=== PATIENT | male | born 1960 | race African-American/Black ===

== ENCOUNTER 2017-06-01 13:05 | Emergency (ER) | payer MEDICARE, OTHER ==
[~2017-06-01] VITALS: Ht 177.8 cm; Wt 65.0 kg
[2017-06-01] MEDS ORDERED: KETOROLAC 60MG/2ML VIAL IM ONE (16:45)
[2017-06-01] MEDS ORDERED: ONDANSETRON 4MG ODT PO ONE (16:45)
[2017-06-01 16:56] VITALS: BP 141/91
[2017-06-01] MEDS ORDERED: SUMATRIPTAN SUCCINATE 25MG TABLET PO ONE (18:15)
== END 2017-06-01 18:38 | disposition home or self-care (01) ==
LOC: ER 14:12
DX: G43.909 Migraine, unspecified, not intractable, without status migrainosus (principal); I10 Essential (primary) hypertension; Z87.19 Personal history of other diseases of the digestive system
CPT/HCPCS: 96372; 99283; J1885; Q0162

== ENCOUNTER 2019-09-02 11:34 | Emergency (ER) | payer MEDICARE, OTHER ==
[~2019-09-02] VITALS: Ht 177.8 cm; Wt 73.0 kg
[2019-09-02 11:44] VITALS: BP 160/80
== END 2019-09-02 15:58 | disposition left against medical advice (07) ==
LOC: ER 11:51
DX: R10.9 Unspecified abdominal pain (principal); Z53.21 Procedure and treatment not carried out due to patient leaving prior to being seen by health care provider

== ENCOUNTER 2019-09-02 18:47 | Emergency (ER) | payer MEDICARE, OTHER ==
[~2019-09-02] VITALS: Ht 177.8 cm; Wt 68.0 kg
[2019-09-02 18:59] VITALS: BP 146/107
== END 2019-09-03 | disposition left against medical advice (07) ==
LOC: ER 18:47
DX: Z53.21 Procedure and treatment not carried out due to patient leaving prior to being seen by health care provider (principal)